=== PATIENT | male | born 1960 | race Caucasian/White ===

== ENCOUNTER → 2018-01-23 | Outpatient (CLI) | payer OTHER | LOC: FIMAGING 07:32 | PROVIDERS: ATTEND Surgery | DX: I87.2 Venous insufficiency (chronic) (peripheral) (principal); L97.311 Non-pressure chronic ulcer of right ankle limited to breakdown of skin ==

== ENCOUNTER 2018-06-16 06:39 | Day surgery (SDC) | payer OTHER ==
[2018-06-16] MEDS ORDERED: ATROPINE SULFATE 1 MG/10 ML SYR IVP ONE (06:44)
[2018-06-16] MEDS ORDERED: BENZOCAINE UNIT DOSE SPRAY HURRICAINE MM ONE (06:44)
[2018-06-16] MEDS ORDERED: fentaNYL 100 MCG/2 ML INJ IVP ONE (06:44)
[2018-06-16] MEDS ORDERED: NS 500 ML IV ONE (06:44)
[2018-06-16] MEDS ORDERED: MIDAZOLAM 2 MG/2 ML VIAL IVP ONE (06:44)
--- NOTE | 2018-06-16 07:34 | PDANEPAE ---
ANE History of Present Illness 58 year old male with onset of SOB in April 2018, here today for CASSY and cardioversion. ANE Past Medical History - Cardiovascular History Hx Hypertension: Yes Hx Arrhythmias: Yes Hx Chest Pain: No Hx Coronary Artery / Peripheral Vascular Disease: No Hx CHF / Valvular Disease: No Hx Palpitations: No - Pulmonary History Hx COPD: No Hx Asthma/Reactive Airway Disease: No Hx Recent Upper Respiratory Infection: No Hx Oxygen in Use at Home: No Hx Sleep Apnea: No - Endocrine History Hx Diabetes: No - Chronic Pain History Chronic Pain: No ANE Review of Systems Review of systems is: negative Review of Systems: ANE Patient History - Allergies Allergies/Adverse Reactions: No Known Allergies Allergy (Verified 01/06/14 13:35) - Home Medications Home Medications: Loperamide HCl [Imodium 2 mg (*)] 4 mg PO TID 12/25/13 [Last Taken 01/21/15 14: 00] Warfarin Sodium [Coumadin 2.5MG (*)] 2.5 mg PO Q2D 01/21/15 [Last Taken 01/21/15 ] Warfarin Sodium [Coumadin] 10 mg PO Q2D 01/21/15 [Last Taken 01/20/15] Lisinopril 20 mg PO DAILY 06/16/18 [Last Taken Unknown] - Smoking Hx Smoking Status: Never smoked ANE Labs/Vital Signs - Vital Signs Height: 188 cm Weight: 82.9 kg ANE Physical Exam - Airway Neck exam: FROM Mallampati Score: Class 1 Mouth exam: normal dental/mouth exam - Pulmonary Pulmonary: no respiratory distress - Cardiovascular Cardiovascular: irregularly irregular - ASA Status ASA Status: II ANE Anesthesia Plan Anesthesia Plan: MAC
[2018-06-16] MEDS ORDERED: PROPOFOL 200 MG/20 ML VIAL ONE (07:35)
[2018-06-16] MEDS ORDERED: LIDOCAINE 1% 5 ML SDV ONE (07:36)
[2018-06-16 07:53] LABS: INR 2.65 (0.83-1.16); PROTIME(PATIENT) 28.2 SEC (12.0-15.0)
--- NOTE | 2018-06-16 08:14 | PDHPUP ---
History & Physical Update H&P update statement: This history and physical update is based on an assessment of the patient which was completed after admission or registration (within 24 hours), but prior to the surgery/procedure. H&P update: H&P reviewed & patient examined, no change in patient's condition since H&P completed
--- NOTE | 2018-06-16 08:31 | PDTEE1 ---
CASSY Cardioversion Procedure Procedure: electrical cardioversion, transesophageal echo Indications: atrial fibrillation Consent: signed and in chart Anticoagulation: warfarin Procedural Details: After consents for anesthesia, CASSY, and possible cardioversion were signed and in chart, a "time out" was performed. Patient was placed in the left lateral position to facilitate ease of CASSY probe placement. CASSY probe was placed without difficulty. Preliminary report (1) Normal left ventricular systolic ejection fraction (2) No left ventricular hypertrophy (3) Moderate biatrial dilation (4) Trivial mitral regurgitation with normal appearance (5) Trileaflet aortic valve without sclerosis or insufficiency noted (6) Grossly normal tricuspid valve (7) Grossly normal pulmonic valve (8) "smoke" was noted to the left atrium (9) No thrombus or clot was noted in the left atrial appendage Synchronized cardioversion attempt #1: 200J Results: normal sinus rhythm Conclusions: successful CASSY cardioversion Conclusion Comment: A single, synchronized shock (200J) converted the patient from atrial fibrillation (rates of 50-55 bpm) to normal sinus rhythm (rates of 55-60 bpm). No complications were noted. Recovery from anesthesia without event. Patient Problems: Problems Problem Status Onset DVT (deep venous thrombosis) Acute GI hemorrhage Acute
[2018-06-16] MEDS ORDERED: NALOXONE HCL 0.4 MG/ML INJ IVP PRN (08:34)
--- NOTE | 2018-06-16 08:34 | POSTANESTH ---
Post Anesthetic Evaluation Cardiovascular Status: Normal, Stable Respiratory Status: Normal, Stable Level of Consciousness/Mental Status: Can Participate in Eval Pain Control: Adequate, Prn Tx Ordered Nausea/Vomiting Control: Adequate, Prn Tx Ordered Complications Possibly Related to Anesthesia: None Noted
== END 2018-06-16 10:00 | disposition home or self-care (01) ==
LOC: FCATH 06:39
PROVIDERS: ATTEND Internal Medicine Cardiovascular Disease
DX: I48.91 Unspecified atrial fibrillation (principal); I10 Essential (primary) hypertension; K51.90 Ulcerative colitis, unspecified, without complications; Z79.01 Long term (current) use of anticoagulants; Z86.010 Personal history of colon polyps; Z86.718 Personal history of other venous thrombosis and embolism; Z82.49 Family history of ischemic heart disease and other diseases of the circulatory system; Z80.0 Family history of malignant neoplasm of digestive organs; Z90.49 Acquired absence of other specified parts of digestive tract
CPT/HCPCS: J2250; J2704

== ENCOUNTER → 2018-10-14 | Outpatient (CLI) | payer OTHER | LOC: FIMAGING 08:52 ==